=== PATIENT | male | born 1960 | race Caucasian/White ===

== ENCOUNTER 2019-10-31 16:33 | Emergency (ER) | payer OTHER ==
[~2019-10-31] VITALS: Ht 167.6 cm; Wt 113.8 kg
[~2019-10-31 16:33] MED LIST: AMLO5TAB4 PO; ASPI-496 PO; ATEN50TA41 PO; ENAL20TA PO; HYDR12.517 PO; SIMV10TA PO
--- NOTE | 2019-10-31 16:59 | NUR ---
THIS IS A 59 YO M WHO STATES HE WAS AT WORK WHEN HE LOOKED AT HIS WATCH AND NOTICED HIS HR WAS 130. REPORTS FEELING PALPITATIONS. TOOK 81 MG ASPIRIN AND ENALAPRIL. PT TACHYCARDIC AND HYPERTENSIVE. OTHER VS WDL. PT IS RESTING ON GURNEY CONNECTED TO ALL MONITORING W/ CALL LIGHT IN REACH. DENIES FURTHER NEEDS AT THIS TIME. AWAITING ED EVAL.
[2019-10-31] MEDS ORDERED: SODIUM CHLORIDE 0.9% 1,000ML IVBOLUS ONE (17:30)
[2019-10-31] MEDS ORDERED: SODIUM CHLORIDE FLUSH 10ML SYR IVF ONE (17:30)
[2019-10-31 17:59] LABS: BASOPHILS # (AUTO) 0.03 x10^3/uL (0-0.1); BASOPHILS % (AUTO) 0 % (0-1); EOSINOPHILS # (AUTO) 0.03 x10^3/uL (0-0.4); EOSINOPHILS % (AUTO) 0 % (1-7); LYMPHOCYTES # (AUTO) 0.78 x10^3/uL (1-3.4); LYMPHOCYTES % (AUTO) 8 % (22-44); MD NO; MEAN CORPUSCULAR HEMOGLOBIN 30.3 pg (27.5-34.5); MEAN CORPUSCULAR HGB CONC 33.3 g/dL (33.2-36.2); MEAN PLATELET VOLUME 7.6 fL (7.4-10.4); MONOCYTES # (AUTO) 0.78 x10^3/uL (0.2-0.8); MONOCYTES % (AUTO) 8 % (2-9); NEUTROPHILS # (AUTO) 7.72 x10^3/uL (1.8-6.8); NEUTROPHILS % (AUTO) 83 % (42-75); PLATELET COUNT 237 x10^3/uL (130-400); RED BLOOD COUNT 5.56 x10^6/uL (4.38-5.82); RED CELL DISTRIBUTION WIDTH 13.6 % (9.4-14.8)
--- NOTE | 2019-10-31 18:01 | NUR ---
PT RESTING ON [facility] W/ CALL LIGHT IN REACH. AWAITING RESULTS.
[2019-10-31 18:10] LABS: ALANINE AMINOTRANSFERASE 52 U/L (12-78); ALBUMIN 4.1 g/dL (3.4-5.0); ANION GAP 6 mmol/L (5-15); CALCIUM 8.5 mg/dL (8.5-10.1); CHLORIDE 110 mmol/L (98-107)
[2019-10-31 18:21] LABS: ALKALINE PHOSPHATASE 138 U/L (45-117); BILIRUBIN,TOTAL 0.6 mg/dL (0.2-1.0); CREATININE 0.98 mg/dL (0.7-1.3); TOTAL PROTEIN 7.3 g/dL (6.4-8.2)
[2019-10-31 18:37] VITALS: BP 126/73
--- NOTE | 2019-10-31 19:11 | NUR ---
Patient given discharge instructions and they have confirmed that they understand the instructions. Patient ambulatory with steady gait.
== END 2019-10-31 19:17 | disposition home or self-care (01) ==
LOC: ED 17:33
DX: R00.2 Palpitations (principal); E86.0 Dehydration; R00.0 Tachycardia, unspecified; I10 Essential (primary) hypertension; Z86.73 Personal history of transient ischemic attack (TIA), and cerebral infarction without residual deficits
CPT/HCPCS: 36415; 71045; 80053; 84443; 85025; 93005; 96360; 99285; J7030